=== PATIENT | female | born 1985 | race Caucasian/White ===

== ENCOUNTER 2019-02-19 11:23 | Outpatient (RCR) | payer MEDICAID, SELFPAY | END 2019-03-20 23:59 | LOC: WC 11:23 | PROVIDERS: Family Provider Family Medicine; PCP Family Medicine; Visit Provider Nurse Practitioner Family | DX: Z09 Encounter for follow-up examination after completed treatment for conditions other than malignant neoplasm (principal) ==

== ENCOUNTER 2020-11-19 16:17 | Emergency (ER) | payer MEDICAID, SELFPAY ==
[2020-11-19 16:20] VITALS: BP 127/76; PULSE 114; RESP 17; TEMP 37.4; O2SAT 98; BMI 26.4
--- NOTE | 2020-11-19 17:14 | EX.ED.DYSGE1 ---
HPI History of Present Illness Chief Complaint: Back Informant: patient Narrative Narrative: Patient states she has had lungs with her back hurting for about 7 or 8 years. Her original injury was helping a paralyzed gentleman who had leg spasms. She was stretching his legs when the spasm occurred causing her to fall on top of him. She has had intermittent symptoms since. She has seen physical therapy and chiropractor. She has had multiple x-rays. She has had steroids including last about 4 months ago. She states she was wrestling with her son about 3 or 4 days ago. The next morning she woke up and her back was sore in the exact same spot it always is. Motion makes it worse and staying still makes it a bit better. She does not have any radicular symptoms. She has no bowel bladder dysfunction. She has no hematuria. No fevers or chills. No recent infections. [facility] Medical History Depression Home Medications amitriptyline [Elavil] 25 mg PO DAILY 11/19/20 [History Last Taken Unknown] cyclobenzaprine 10 mg PO BID PRN #10 tab 11/19/20 [Rx Last Taken Unknown] naproxen [Naprosyn] 500 mg PO BID #20 tab 11/19/20 [Rx Last Taken Unknown] sertraline 25 mg PO DAILY 11/19/20 [History Last Taken Unknown] Allergy/AdvReac Type Severity Reaction Status Date / Time No Known Allergies Allergy Verified 11/19/20 16:18 Social History Smoking Status: Current every day smoker tobacco type: cigarettes ROS ROS ED Constitutional Constitutional ED: Denies chills or fever(s) ENT ENT ED: Denies rhinorrhea Cardiovascular Cardiovascular: Denies chest pain Respiratory/Chest Respiratory/Chest: Denies cough or dyspnea Gastrointestinal Gastrointestinal: Denies abdominal pain, constipation, diarrhea, nausea or vomiting Genitourinary Genitourinary ED: Denies dysuria, hematuria or urinary frequency Musculoskeletal Musculoskeletal: Reports back pain; Denies neck pain Integumentary Denies rash Neurologic Neurologic: Denies headache(s), paresthesias or weakness Psychiatric Psychiatric: Reports anxiety and depression Endocrine Endocrinology: Denies polydipsia or polyuria EXAM Physical Exam Const Vital Signs: 11/19/20 16:20 Temperature 99.3 F H Temperature Source Temporal Pulse Rate 114 H Respiratory Rate 17 Blood Pressure 127/76 H Blood Pressure Mean 93 Pulse Ox 98 Oxygen Delivery Method Room Air Positive well nourished and well developed General Appearance ED: well developed HEENT Negative for trauma Eyes General Eye ED: Negative for pale conjunctiva Chest Wall inspection of chest normal Resp normal respiratory effort and clear to auscultation bilaterally Cardio regular rate GI normal to inspection, nondistended, normoactive bowel sounds and non-tender Palpation: soft Back/Spine no CVA tenderness Back/Spine Narrative: Patient has some mild tenderness diffusely around L3-L4 area. No skin changes other than tattoo locally. There is no buttock tenderness. General Back: Negative for CVA tenderness Extremity normal to inspection General Extremety ED: Negative for edema or tenderness General Extremity: Negative for edema Neuro Neuro Narrative: Patient has +1 bilateral but equal patellar reflexes. There is +1?2 Achilles reflexes. She can get up and walk around and do well independently. No sign of muscle weakness. Sensorium / Orientation: alert Psych mental status grossly normal Skin no rashes or lesions noted MDM MDM MDM Narrative Medical decision making narrative: Patient is here with exacerbation of chronic recurrent back pain. She has no red flags of back pain. This is the same type and location. I will give her Toradol. We will get her on nonsteroidals and muscle relaxants. We will hold off on steroids at this time. She will follow up with her primary physician Coy. She should return with numbness, tingling, weakness, pain radiating down her legs, problem moving bowels or urine. Discharge Plan Triage Chief Complaint: Back ED Provider: Bar Mack Dx/Rx/DC Orders Clinical Impression: Low back strain Instructions: ED Back Sprain/Strain Prescriptions: New naproxen [Naprosyn] 500 mg tablet 500 mg PO BID Qty: 20 RF: 0 cyclobenzaprine 10 mg tablet 10 mg PO BID PRN (Reason: muscle spasm) Qty: 10 RF: 0 No Action amitriptyline [Elavil] 25 mg Tablet 25 mg PO DAILY RF: 0 sertraline 25 mg tablet 25 mg PO DAILY RF: 0 Primary Care Provider: Misty Ortega Referrals: Misty Ortega MD [Primary Care Provider] - 3-5 Days Disposition Disposition: Home, Self Care
[2020-11-19] MEDS: Ketorolac 60 MG/2 ML Vial IM (17:30)
== END 2020-11-19 17:48 | disposition home or self-care (01) ==
PROVIDERS: Emergency Provider Emergency Medicine; PCP Family Medicine
DX: S39.012A Strain of muscle, fascia and tendon of lower back, initial encounter (principal); X58.XXXA Exposure to other specified factors, initial encounter; F17.210 Nicotine dependence, cigarettes, uncomplicated; F32.9 Major depressive disorder, single episode, unspecified; Z79.1 Long term (current) use of non-steroidal anti-inflammatories (NSAID); Z79.899 Other long term (current) drug therapy
CPT/HCPCS: 99282